=== PATIENT | female | born 1955 | race American Indian/Alaskan Native ===

== ENCOUNTER 2017-08-08 19:14 | Inpatient (IN) | payer MEDICARE, OTHER ==
[~2017-08-08] VITALS: Ht 162.6 cm; Wt 50.5 kg
[~2017-08-08 19:14] MED LIST: CEFD300C37 PO; DOXY100T PO; IPRA3AMP NPPB; LOSA50TA2 PO; PRED5TAB PO
[2017-08-08] MEDS ORDERED: ONDANSETRON 2MG/ML, 2ML IVPush ONE (20:00)
[2017-08-08] MEDS ORDERED: ALBUTEROL/IPRATROPIUM 2.5MG/0.5MG, 3 ML ONE ×2 (20:10→21:12)
[2017-08-08] MEDS ORDERED: CEFTRIAXONE PMX 1GM/50ML 50 ML ONE (20:48)
[2017-08-08] MEDS ORDERED: SODIUM CHLORIDE FLUSH 10ML SYR IVF ONE (21:00)
[2017-08-08] MEDS ORDERED: CEFTRIAXONE PMX 1GM/50ML 50 ML IVPB ONE (21:00)
[2017-08-08] MEDS ORDERED: AZITHROMYCIN 500 MG in SODIUM CHLORIDE 0.9% 250 ML IV ONE (21:00)
[2017-08-08] MEDS ORDERED: SODIUM CHLORIDE 0.9% 1,000ML IVBOLUS ONE (21:00)
[2017-08-08 21:14] LABS: HEMATOCRIT 43.2 % (34.6-47.8); HEMOGLOBIN 14.2 g/dL (11.7-16.4); WHITE BLOOD COUNT 14.5 x10^3/uL (3.4-10)
[2017-08-08 21:20] LABS: BLOOD UREA NITROGEN 19 mg/dL (7-18)
[2017-08-08] MEDS ORDERED: ENALAPRILAT 1.25 MG/ML, 2ML IV ONE (23:00)
[2017-08-08] MEDS ORDERED: ENALAPRILAT 1.25 MG/ML, 2ML ONE (23:14)
[2017-08-08] MEDS ORDERED: POLYETHYLENE GLYCOL 17 GM PACKET PO PRN (23:30)
[2017-08-08] MEDS: AZITHROMYCIN 500 MG in SODIUM CHLORIDE 0.9% 250 ML IV SCH (23:30)
[2017-08-08] MEDS: CEFTRIAXONE PMX 1GM/50ML 50 ML IV SCH (23:30)
[2017-08-08] MEDS ORDERED: BISACODYL 10 MG SUPP PR PRN (23:30)
[2017-08-08] MEDS ORDERED: hydrALAzine 20 MG/ML, 1ML IVPush PRN (23:30)
[2017-08-08] MEDS ORDERED: ONDANSETRON 2MG/ML, 2ML IVPush PRN (23:30)
[2017-08-09] MEDS ORDERED: LISINOPRIL 20 MG TABLET ONE (00:47)
[2017-08-09] MEDS ORDERED: HEPARIN 5,000 UNITS/ML, 1ML ONE (00:47)
[2017-08-09] MEDS ORDERED: NICOTINE 21 MG/24 HR PATCH.TD24 ONE (00:47)
[2017-08-09] MEDS: HEPARIN 5,000 UNITS/ML, 1ML SQ SCH ×3 (00:54→16:32)
[2017-08-09] MEDS: NICOTINE 21 MG/24 HR PATCH.TD24 TD SCH (00:54)
[2017-08-09] MEDS: LISINOPRIL 20 MG TABLET PO SCH ×3 (00:54→22:50)
[2017-08-09] MEDS: SODIUM CHLORIDE 0.9% 1,000 ML IV SCH ×3 (00:55→16:31)
[2017-08-09] MEDS ORDERED: ALBUTEROL/IPRATROPIUM 2.5MG/0.5MG, 3 ML NPPB PRN (01:30)
[2017-08-09] MEDS ORDERED: ALBUTEROL/IPRATROPIUM 2.5MG/0.5MG, 3 ML ONE (01:49)
[2017-08-09] MEDS: ALBUTEROL/IPRATROPIUM 2.5MG/0.5MG, 3 ML NPPB SCH ×7 (01:53→21:59)
[2017-08-09 05:22] LABS: HEMATOCRIT 38.1 % (34.6-47.8); HEMOGLOBIN 12.9 g/dL (11.7-16.4); WHITE BLOOD COUNT 23.4 x10^3/uL (3.4-10)
[2017-08-09 05:25] LABS: BLOOD UREA NITROGEN 12 mg/dL (7-18)
[2017-08-09 05:30] LABS: ASPARTATE AMINO TRANSFERASE 22 U/L (15-37)
[2017-08-09 06:03] LABS: DIFF TOTAL CELLS COUNTED 100 CELL DIFF
[2017-08-09 06:07] LABS: VERIFY COUNTS? YES
[2017-08-09 07:54] VITALS: BP 156/87
[2017-08-09] MEDS: ACETAMINOPHEN 325 MG TABLET PO PRN ×2 (10:24→22:51)
[2017-08-09] MEDS: SENNA/DOCUSATE TABLET PO SCH (10:25)
[2017-08-09 15:47] VITALS: BP 118/60
[2017-08-09 20:00] VITALS: BP 119/72
[2017-08-09] MEDS: GUAIFENESIN/DM 200-20MG, 10ML UDC PO PRN (23:20)
[2017-08-09] MEDS: CEFTRIAXONE PMX 1GM/50ML 50 ML IV SCH (23:21)
[2017-08-09] MEDS ORDERED: DEXTROMETHORPHAN 30 MG/5 ML ORAL SOL PO PRN (23:30)
[2017-08-10] MEDS: NICOTINE 21 MG/24 HR PATCH.TD24 TD SCH ×2 (00:04→23:33)
[2017-08-10] MEDS: HEPARIN 5,000 UNITS/ML, 1ML SQ SCH ×4 (00:04→23:30)
[2017-08-10] MEDS: AZITHROMYCIN 500 MG in SODIUM CHLORIDE 0.9% 250 ML IV SCH ×2 (00:06→23:32)
[2017-08-10] MEDS: ALBUTEROL/IPRATROPIUM 2.5MG/0.5MG, 3 ML NPPB SCH ×5 (01:46→21:20)
[2017-08-10 02:43] VITALS: BP 128/72
[2017-08-10] MEDS: SODIUM CHLORIDE 0.9% 1,000 ML IV SCH ×3 (04:35→19:50)
[2017-08-10 06:24] LABS: HEMATOCRIT 36.2 % (34.6-47.8); HEMOGLOBIN 11.8 g/dL (11.7-16.4)
[2017-08-10 06:28] LABS: BLOOD UREA NITROGEN 10 mg/dL (7-18)
[2017-08-10 08:12] VITALS: BP 144/86
[2017-08-10] MEDS: GUAIFENESIN/DM 200-20MG, 10ML UDC PO PRN ×2 (08:59→20:03)
[2017-08-10] MEDS: LISINOPRIL 20 MG TABLET PO SCH ×2 (08:59→20:53)
[2017-08-10] MEDS: SENNA/DOCUSATE TABLET PO SCH (08:59)
[2017-08-10] MEDS ORDERED: POTASSIUM CHLORIDE 20 MEQ TAB.ER.PRT PO ONE (15:00)
[2017-08-10 15:28] VITALS: BP 166/86
[2017-08-10 19:19] VITALS: BP 151/75
[2017-08-10] MEDS: CEFTRIAXONE PMX 1GM/50ML 50 ML IV SCH (22:54)
[2017-08-11 03:00] VITALS: BP 127/72
[2017-08-11 05:22] LABS: HEMATOCRIT 33.4 % (34.6-47.8); HEMOGLOBIN 11.1 g/dL (11.7-16.4); WHITE BLOOD COUNT 10.5 x10^3/uL (3.4-10)
[2017-08-11 05:34] LABS: BLOOD UREA NITROGEN 7 mg/dL (7-18)
[2017-08-11] MEDS: SODIUM CHLORIDE 0.9% 1,000 ML IV SCH (05:49)
[2017-08-11] MEDS: GUAIFENESIN/DM 200-20MG, 10ML UDC PO PRN ×2 (05:49→12:13)
[2017-08-11] MEDS: ALBUTEROL/IPRATROPIUM 2.5MG/0.5MG, 3 ML NPPB SCH (07:03)
[2017-08-11] MEDS: HEPARIN 5,000 UNITS/ML, 1ML SQ SCH (07:30)
[2017-08-11] MEDS ORDERED: GUAI5SYR PO (08:14)
[2017-08-11] MEDS ORDERED: LISI-170 PO (08:14)
[2017-08-11] MEDS ORDERED: CEFD300C37 PO (08:14)
[2017-08-11] MEDS ORDERED: IPRA3AMP NPPB (08:14)
[2017-08-11] MEDS ORDERED: NICO-487 TD (08:14)
[2017-08-11 08:30] VITALS: BP 168/92
[2017-08-11] MEDS: LISINOPRIL 20 MG TABLET PO SCH (08:41)
[2017-08-11] MEDS: SENNA/DOCUSATE TABLET PO SCH (08:42)
[2017-08-11] MEDS ORDERED: CEFDINIR 300 MG CAPSULE PO SCH (09:00)
== END 2017-08-11 12:45 | disposition home or self-care (01) | DRG 871 ==
LOC: ED 22:03 → EDIP 23:08 → 4EST 08-09 07:49 → DCLOUNGE 08-11 12:31
PROVIDERS: ADMIT Surgery; ATTEND Internal Medicine
DX: A41.9 Sepsis, unspecified organism (principal); J15.9 Unspecified bacterial pneumonia; J96.01 Acute respiratory failure with hypoxia; E43 Unspecified severe protein-calorie malnutrition; J44.0 Chronic obstructive pulmonary disease with (acute) lower respiratory infection; Z68.1 Body mass index [BMI] 19.9 or less, adult; I10 Essential (primary) hypertension; F12.90 Cannabis use, unspecified, uncomplicated; E87.6 Hypokalemia; F15.10 Other stimulant abuse, uncomplicated; F41.9 Anxiety disorder, unspecified; R79.89 Other specified abnormal findings of blood chemistry; F17.200 Nicotine dependence, unspecified, uncomplicated; Z80.8 Family history of malignant neoplasm of other organs or systems; Z87.01 Personal history of pneumonia (recurrent); Z72.0 Tobacco use; Z98.51 Tubal ligation status
CPT/HCPCS: 36415; 71010; 80048; 80053; 82040; 83605; 84145; 85025; 87040; 87070; 87205; 93005; 94640; 99285; J0456; J0696; J1644; J7620; J7030; J7050

== ENCOUNTER 2017-11-14 19:23 | Inpatient (IN) | payer MEDICARE ==
[~2017-11-14] VITALS: Ht 157.5 cm; Wt 56.8 kg
[~2017-11-14 19:23] MED LIST changes: +GUAI5SYR PO; +LISI-170 PO; +NICO-487 TD
[2017-11-14] MEDS ORDERED: ALBUTEROL/IPRATROPIUM 2.5MG/0.5MG, 3 ML ONE (19:43)
[2017-11-14 19:50] LABS: BASOPHILS # (AUTO) 0.04 x10^3/uL (0-0.1); BASOPHILS % (AUTO) 0 % (0-1); EOSINOPHILS # (AUTO) 0.49 x10^3/uL (0-0.4); EOSINOPHILS % (AUTO) 3 % (1-7); LYMPHOCYTES # (AUTO) 2.76 x10^3/uL (1-3.4); LYMPHOCYTES % (AUTO) 17 % (22-44); MD NO; MEAN CORPUSCULAR HEMOGLOBIN 31.6 pg (27.0-34.8); MEAN CORPUSCULAR HGB CONC 33.3 g/dL (32.4-35.8); MEAN CORPUSCULAR VOLUME 94.8 fL (80-100); MEAN PLATELET VOLUME 6.5 fL (7.4-10.4); MONOCYTES # (AUTO) 0.66 x10^3/uL (0.2-0.8); MONOCYTES % (AUTO) 4 % (2-9); NEUTROPHILS # (AUTO) 12.73 x10^3/uL (1.8-6.8); NEUTROPHILS % (AUTO) 76 % (42-75); PLATELET COUNT 502 x10^3/uL (130-400); RED BLOOD COUNT 4.41 x10^6/uL (3.82-5.3); RED CELL DISTRIBUTION WIDTH 15.8 % (9.6-15.2)
[2017-11-14] MEDS ORDERED: SODIUM CHLORIDE FLUSH 10ML SYR IVF ONE (20:00)
[2017-11-14] MEDS ORDERED: SODIUM CHLORIDE 0.9% 1,000ML IVBOLUS ONE (20:00)
[2017-11-14] MEDS ORDERED: CEFTRIAXONE PMX 1GM/50ML 50 ML IVPB ONE (20:00)
[2017-11-14] MEDS ORDERED: AZITHROMYCIN 500 MG in SODIUM CHLORIDE 0.9% 250 ML IV ONE (20:00)
[2017-11-14] MEDS ORDERED: ALBUTEROL/IPRATROPIUM 2.5MG/0.5MG, 3 ML NPPB SCH ×2 (20:00→23:00)
[2017-11-14 20:01] LABS: ALANINE AMINOTRANSFERASE 43 U/L (12-78); ALBUMIN 3.3 g/dL (3.4-5.0); ANION GAP 5 mmol/L (5-15); CALCIUM 8.6 mg/dL (8.5-10.1); CHLORIDE 105 mmol/L (98-107)
[2017-11-14 20:04] LABS: ALKALINE PHOSPHATASE 98 U/L (45-117); BILIRUBIN,TOTAL 0.4 mg/dL (0.2-1.0); CREATININE 0.84 mg/dL (0.55-1.02)
[2017-11-14] MEDS ORDERED: LISI40TA PO (20:31)
[2017-11-14] MEDS ORDERED: ALBU1.25 NEB (20:31)
[2017-11-14] MEDS ORDERED: CEFTRIAXONE PMX 1GM/50ML 50 ML ONE (20:33)
[2017-11-14] MEDS: AZITHROMYCIN 500 MG in SODIUM CHLORIDE 0.9% 250 ML IV SCH (20:58)
[2017-11-14] MEDS ORDERED: ENALAPRILAT 1.25 MG/ML, 2ML IVPush PRN (21:00)
[2017-11-14] MEDS ORDERED: CEFTRIAXONE PMX 1GM/50ML 50 ML IV SCH (21:00)
[2017-11-14] MEDS ORDERED: ACETAMINOPHEN 325 MG TABLET PO PRN (21:00)
[2017-11-14] MEDS ORDERED: DOCUSATE 100 MG CAPSULE PO PRN (21:00)
[2017-11-14] MEDS ORDERED: ONDANSETRON ODT 4 MG PO PRN (21:00)
[2017-11-14] MEDS ORDERED: ALBUTEROL/IPRATROPIUM 2.5MG/0.5MG, 3 ML NPPB PRN (22:30)
[2017-11-14] MEDS: ENOXAPARIN 40 MG/0.4 ML SQ SCH (22:33)
[2017-11-14] MEDS: LISINOPRIL 20 MG TABLET PO SCH (22:33)
[2017-11-14 22:42] VITALS: BP 175/109
[2017-11-14] MEDS: ALBUTEROL/IPRATROPIUM 2.5MG/0.5MG, 3 ML NPPB SCH (23:17)
[2017-11-14] MEDS: NICOTINE 14MG/24 HR PATCH.TD24 TD SCH (23:34)
[2017-11-14 23:38] VITALS: BP 151/95
[2017-11-15 01:24] VITALS: BP 144/82
[2017-11-15] MEDS: ALBUTEROL/IPRATROPIUM 2.5MG/0.5MG, 3 ML NPPB SCH ×2 (07:00→11:00)
[2017-11-15 08:19] VITALS: BP 135/76
[2017-11-15] MEDS: LISINOPRIL 20 MG TABLET PO SCH ×2 (09:11→19:53)
[2017-11-15 13:07] VITALS: BP 129/74
[2017-11-15 19:14] VITALS: BP 112/73
[2017-11-15] MEDS ORDERED: CEFTRIAXONE PMX 1GM/50ML 50 ML IV SCH (20:00)
[2017-11-15] MEDS: ENOXAPARIN 40 MG/0.4 ML SQ SCH (21:00)
[2017-11-15] MEDS: AZITHROMYCIN 500 MG in SODIUM CHLORIDE 0.9% 250 ML IV SCH (21:23)
[2017-11-15] MEDS: NICOTINE 14MG/24 HR PATCH.TD24 TD SCH (22:50)
[2017-11-16 05:18] LABS: MEAN CORPUSCULAR HEMOGLOBIN 31.7 pg (27.0-34.8); MEAN CORPUSCULAR HGB CONC 33.1 g/dL (32.4-35.8); MEAN CORPUSCULAR VOLUME 95.8 fL (80-100); MEAN PLATELET VOLUME 7.3 fL (7.4-10.4); PLATELET COUNT 478 x10^3/uL (130-400); RED BLOOD COUNT 3.81 x10^6/uL (3.82-5.3); RED CELL DISTRIBUTION WIDTH 16.2 % (9.6-15.2)
[2017-11-16 05:28] LABS: CHLORIDE 107 mmol/L (98-107)
[2017-11-16 05:29] LABS: ANION GAP 5 mmol/L (5-15); CALCIUM 8.2 mg/dL (8.5-10.1)
[2017-11-16 05:32] LABS: CREATININE 0.75 mg/dL (0.55-1.02)
[2017-11-16 05:42] VITALS: BP 133/89
[2017-11-16 06:02] LABS: BASOPHILS # (AUTO) 0.07 x10^3/uL (0-0.1); BASOPHILS % (AUTO) 0 % (0-1); EOSINOPHILS # (AUTO) 0.12 x10^3/uL (0-0.4); EOSINOPHILS % (AUTO) 1 % (1-7); LYMPHOCYTES # (AUTO) 3.05 x10^3/uL (1-3.4); LYMPHOCYTES % (AUTO) 16 % (22-44); MD SCAN; MONOCYTES # (AUTO) 0.96 x10^3/uL (0.2-0.8); MONOCYTES % (AUTO) 5 % (2-9); NEUTROPHILS # (AUTO) 14.88 x10^3/uL (1.8-6.8); NEUTROPHILS % (AUTO) 78 % (42-75)
[2017-11-16 07:59] VITALS: BP 142/83
[2017-11-16] MEDS: LISINOPRIL 20 MG TABLET PO SCH (09:28)
[2017-11-16] MEDS ORDERED: CEFD300C37 PO (11:06)
[2017-11-16] MEDS ORDERED: AZIT250T PO (11:06)
[2017-11-16] MEDS ORDERED: PRED20TA PO (11:06)
[2017-11-16 13:53] VITALS: BP 161/83
[2017-11-16 17:26] LABS: HCT (SEDRATE) 41.5 % (34.6-47.8)
== END 2017-11-16 18:15 | disposition home or self-care (01) | DRG 871 ==
LOC: MERGE 21:09 → ED 21:09 → EDIP 21:29 → 3NW 21:59
PROVIDERS: ADMIT Hospitalist; ATTEND Hospitalist
DX: A41.9 Sepsis, unspecified organism (principal); J15.9 Unspecified bacterial pneumonia; J96.01 Acute respiratory failure with hypoxia; J44.1 Chronic obstructive pulmonary disease with (acute) exacerbation; J44.0 Chronic obstructive pulmonary disease with (acute) lower respiratory infection; F17.213 Nicotine dependence, cigarettes, with withdrawal; I11.9 Hypertensive heart disease without heart failure; I16.0 Hypertensive urgency; F12.90 Cannabis use, unspecified, uncomplicated; M19.90 Unspecified osteoarthritis, unspecified site; Z80.0 Family history of malignant neoplasm of digestive organs; D47.3 Essential (hemorrhagic) thrombocythemia
CPT/HCPCS: 36415; 71046; 80048; 80053; 83605; 84145; 85025; 85651; 86140; 87040; 93005; 94640; 96365; J0456; J0696; J7620; J7030; J7050; J7512

== ENCOUNTER 2018-06-02 08:50 | Inpatient (IN) | payer MEDICARE ==
[~2018-06-02] VITALS: Ht 162.6 cm; Wt 53.2 kg
[~2018-06-02 08:50] MED LIST changes: +ALBU1.25 NEB; +AZIT250T PO; -IPRA3AMP NPPB; +IPRA3AMP30 NPPB; +LISI40TA PO; +PRED20TA PO
[2018-06-02] MEDS ORDERED: ALBU18HF INH (09:05)
[2018-06-02] MEDS ORDERED: LISINOPRIL 20 MG TABLET ONE (09:35)
[2018-06-02 09:51] LABS: BASOPHILS # (AUTO) 0.03 x10^3/uL (0-0.1); BASOPHILS % (AUTO) 0 % (0-1); EOSINOPHILS % (AUTO) 1 % (1-7); LYMPHOCYTES # (AUTO) 0.95 x10^3/uL (1-3.4); LYMPHOCYTES % (AUTO) 11 % (22-44); MD NO; MEAN CORPUSCULAR HEMOGLOBIN 31.9 pg (27.0-34.8); MEAN CORPUSCULAR HGB CONC 33.5 g/dL (32.4-35.8); MEAN CORPUSCULAR VOLUME 95.1 fL (80-100); MONOCYTES # (AUTO) 0.59 x10^3/uL (0.2-0.8); MONOCYTES % (AUTO) 7 % (2-9); NEUTROPHILS # (AUTO) 6.76 x10^3/uL (1.8-6.8); NEUTROPHILS % (AUTO) 80 % (42-75); PLATELET COUNT 371 x10^3/uL (130-400); RED BLOOD COUNT 5.08 x10^6/uL (3.82-5.3); RED CELL DISTRIBUTION WIDTH 14.6 % (9.6-15.2)
[2018-06-02] MEDS ORDERED: LISINOPRIL 20 MG TABLET PO ONE (10:00)
[2018-06-02 10:04] LABS: ALBUMIN 3.7 g/dL (3.4-5.0); ANION GAP 5 mmol/L (5-15); CALCIUM 9.4 mg/dL (8.5-10.1); CHLORIDE 101 mmol/L (98-107); CREATININE 0.84 mg/dL (0.55-1.02)
[2018-06-02] MEDS ORDERED: hydrALAzine 20 MG/ML, 1ML IV ONE ×2 (11:00→13:00)
[2018-06-02] MEDS ORDERED: ALBUTEROL SULFATE 2.5 MG/3 ML NPPB ONE (11:00)
[2018-06-02] MEDS ORDERED: ALBUTEROL SULFATE 2.5 MG/3 ML ONE (11:09)
[2018-06-02] MEDS ORDERED: OMNIPAQUE 350 MG/ML, 100ML BOTTLE ONE (11:29)
[2018-06-02] MEDS ORDERED: hydrALAzine 20 MG/ML, 1ML ONE (11:31)
[2018-06-02 12:53] VITALS: BP 186/119
[2018-06-02] MEDS ORDERED: SODIUM CHLORIDE 0.9% 1,000 ML IV SCH ×2 (12:53→23:00)
[2018-06-02] MEDS ORDERED: morphine SULFATE 10 MG/ML, 1ML IVPush PRN (13:00)
[2018-06-02] MEDS ORDERED: ONDANSETRON ODT 4 MG PO PRN (13:00)
[2018-06-02] MEDS ORDERED: ACETAMINOPHEN 325 MG TABLET PO PRN (13:00)
[2018-06-02] MEDS ORDERED: BISACODYL 10 MG SUPP PR PRN (13:00)
[2018-06-02] MEDS ORDERED: ONDANSETRON 2MG/ML, 2ML IVPush PRN (13:00)
[2018-06-02] MEDS ORDERED: PROMETHAZINE 25 MG/ML, 1ML IM PRN (13:00)
[2018-06-02 13:03] VITALS: BP 166/103
[2018-06-02] MEDS: NICOTINE 14MG/24 HR PATCH.TD24 TD SCH (13:19)
[2018-06-02] MEDS: ALBUTEROL/IPRATROPIUM 2.5MG/0.5MG, 3 ML NPPB SCH ×3 (13:20→22:00)
[2018-06-02] MEDS: ENALAPRILAT 1.25 MG/ML, 2ML IVPush PRN (13:21)
[2018-06-02] MEDS: methylPREDNISolone SOD SUCC 125 MG/2 ML IVPush SCH ×2 (13:25→20:23)
[2018-06-02] MEDS: HEPARIN 5,000 UNITS/ML, 1ML SQ SCH ×2 (13:27→20:24)
[2018-06-02] MEDS ORDERED: LABETALOL 5MG/ML, 20ML IVPush STA (13:47)
[2018-06-02 13:52] VITALS: BP 166/91
[2018-06-02 14:08] VITALS: BP 121/80
[2018-06-02 14:18] LABS: TROPONIN I < 0.015 ng/mL (0.000-0.045)
[2018-06-02 14:33] LABS: HEMOGLOBIN A1C 5.9 % (4.2-6.3)
[2018-06-02 14:41] LABS: FREE T4 (FREE THYROXINE) 1.34 ng/dL (0.76-1.46); THYROID STIMULATING HORMONE 0.881 mIU/L (0.358-3.740)
[2018-06-02] MEDS: DOXYCYCLINE 100MG TABLET PO SCH (16:31)
[2018-06-02 19:29] VITALS: BP 137/82
[2018-06-02] MEDS ORDERED: LISI40TA PO (20:15)
[2018-06-02] MEDS: OXYcodone/APAP 10/325MG TABLET PO PRN (20:45)
[2018-06-02] MEDS: DOCUSATE 100 MG CAPSULE PO PRN (20:45)
[2018-06-02 23:28] LABS: MICROSCOPIC NOT IND
[2018-06-02 23:32] LABS: CULTURE INDICATED? NO
[2018-06-03 01:28] VITALS: BP 122/73
[2018-06-03] MEDS: methylPREDNISolone SOD SUCC 125 MG/2 ML IVPush SCH ×4 (01:31→19:45)
[2018-06-03 04:33] LABS: MEAN CORPUSCULAR HEMOGLOBIN 32.2 pg (27.0-34.8); MEAN CORPUSCULAR HGB CONC 33.5 g/dL (32.4-35.8); MEAN CORPUSCULAR VOLUME 96.1 fL (80-100); MEAN PLATELET VOLUME 7.4 fL (7.4-10.4); PLATELET COUNT 371 x10^3/uL (130-400); RED BLOOD COUNT 4.27 x10^6/uL (3.82-5.3); RED CELL DISTRIBUTION WIDTH 14.5 % (9.6-15.2)
[2018-06-03 04:34] LABS: ALBUMIN 2.8 g/dL (3.4-5.0); ANION GAP 9 mmol/L (5-15); CALCIUM 8.6 mg/dL (8.5-10.1); CHLORIDE 104 mmol/L (98-107)
[2018-06-03] MEDS: HEPARIN 5,000 UNITS/ML, 1ML SQ SCH ×3 (04:35→19:53)
[2018-06-03] MEDS: DOXYCYCLINE 100MG TABLET PO SCH ×3 (04:35→19:44)
[2018-06-03 04:39] LABS: ALANINE AMINOTRANSFERASE 32 U/L (12-78); ALKALINE PHOSPHATASE 75 U/L (45-117); BILIRUBIN,TOTAL 0.3 mg/dL (0.2-1.0); CHOL/HDL RATIO 2.6; CHOLESTEROL, TOTAL 156 mg/dL (140-239); HDL CHOL % 38 % (28-40); HDL CHOLESTEROL (DIRECT) 60 mg/dL (40-60); LDL CHOLESTEROL,CALCULATED 88 mg/dL (54-169); LDL/HDL RATIO 1.5 (0.5-3.0); TRIGLYCERIDES 42 mg/dL (50-200); VLDL CHOLESTEROL 8 mg/dL (0-25)
[2018-06-03 05:07] LABS: MD YES
[2018-06-03 05:08] LABS: BAND#(MANUAL) 0.75 x10^3/uL; BANDS%(MANUAL) 4 % (0-7); LYMPH#(MANUAL) 0.19 x10^3/uL (1-3.4); LYMPHS% (MANUAL) 1 % (22-44); MONOS#(MANUAL) 0.56 x10^3/uL (0.3-2.7); MONOS% (MANUAL) 3 % (2-9); SEGS% (MANUAL) 92 % (42-75)
[2018-06-03 05:09] LABS: <PLATELET ESTIMATE> ADEQUATE; <PLT MORPHOLOGY> NORMAL PLT MORPH; <RBC MORPHOLOGY> NORMAL
[2018-06-03 07:06] VITALS: BP 127/77
[2018-06-03] MEDS: ALBUTEROL/IPRATROPIUM 2.5MG/0.5MG, 3 ML NPPB SCH ×5 (07:40→22:00)
[2018-06-03] MEDS: OXYcodone/APAP 10/325MG TABLET PO PRN ×2 (10:13→19:44)
[2018-06-03 13:15] VITALS: BP 139/88
[2018-06-03] MEDS: NICOTINE 14MG/24 HR PATCH.TD24 TD SCH (13:33)
[2018-06-03] MEDS: LOSARTAN 50MG TABLET PO SCH (13:33)
[2018-06-03 18:39] VITALS: BP 120/74
[2018-06-03] MEDS: DOCUSATE 100 MG CAPSULE PO PRN (19:53)
[2018-06-04] MEDS: methylPREDNISolone SOD SUCC 125 MG/2 ML IVPush SCH ×4 (01:16→20:13)
[2018-06-04 01:21] VITALS: BP 123/74
[2018-06-04] MEDS: OXYcodone/APAP 10/325MG TABLET PO PRN ×5 (01:24→23:30)
[2018-06-04] MEDS: HEPARIN 5,000 UNITS/ML, 1ML SQ SCH ×3 (05:16→20:13)
[2018-06-04] MEDS: ALBUTEROL/IPRATROPIUM 2.5MG/0.5MG, 3 ML NPPB SCH ×4 (06:00→19:55)
[2018-06-04 08:17] VITALS: BP 147/91
[2018-06-04] MEDS: DOXYCYCLINE 100MG TABLET PO SCH ×2 (08:22→20:13)
[2018-06-04] MEDS: LOSARTAN 50MG TABLET PO SCH (08:22)
[2018-06-04] MEDS ORDERED: PRED5TAB PO (12:35)
[2018-06-04] MEDS ORDERED: DOXY100T PO (12:35)
[2018-06-04] MEDS ORDERED: ALBU18HF INH (12:35)
[2018-06-04] MEDS ORDERED: LOSA50TA2 PO (12:35)
[2018-06-04] MEDS ORDERED: IPRA4AER INH (12:35)
[2018-06-04 13:08] VITALS: BP 165/95
[2018-06-04] MEDS: NICOTINE 14MG/24 HR PATCH.TD24 TD SCH (13:33)
[2018-06-04 19:38] VITALS: BP 157/86
[2018-06-05 01:49] VITALS: BP 149/82
[2018-06-05] MEDS: methylPREDNISolone SOD SUCC 125 MG/2 ML IVPush SCH ×4 (02:46→19:58)
[2018-06-05] MEDS: HEPARIN 5,000 UNITS/ML, 1ML SQ SCH ×2 (05:00→13:36)
[2018-06-05 06:59] VITALS: BP 166/95
[2018-06-05] MEDS: ALBUTEROL/IPRATROPIUM 2.5MG/0.5MG, 3 ML NPPB SCH ×4 (07:45→19:16)
[2018-06-05] MEDS: DOXYCYCLINE 100MG TABLET PO SCH ×2 (07:59→19:58)
[2018-06-05] MEDS: LOSARTAN 50MG TABLET PO SCH (07:59)
[2018-06-05] MEDS: OXYcodone/APAP 10/325MG TABLET PO PRN ×3 (08:15→18:34)
[2018-06-05 12:38] VITALS: BP 162/92
[2018-06-05] MEDS: NICOTINE 14MG/24 HR PATCH.TD24 TD SCH (13:36)
[2018-06-05 19:38] VITALS: BP 153/97
[2018-06-06 01:15] VITALS: BP 152/77
[2018-06-06] MEDS: HEPARIN 5,000 UNITS/ML, 1ML SQ SCH ×3 (01:44→16:39)
[2018-06-06] MEDS: OXYcodone/APAP 10/325MG TABLET PO PRN ×4 (01:45→19:24)
[2018-06-06] MEDS: methylPREDNISolone SOD SUCC 125 MG/2 ML IVPush SCH ×4 (01:45→20:06)
[2018-06-06] MEDS: ALBUTEROL/IPRATROPIUM 2.5MG/0.5MG, 3 ML NPPB SCH (06:32)
[2018-06-06 07:45] VITALS: BP 154/81
[2018-06-06] MEDS ORDERED: ALBUTEROL/IPRATROPIUM 2.5MG/0.5MG, 3 ML NPPB PRN (08:30)
[2018-06-06] MEDS: DOXYCYCLINE 100MG TABLET PO SCH ×2 (09:00→20:06)
[2018-06-06] MEDS: LOSARTAN 50MG TABLET PO SCH (09:38)
[2018-06-06] MEDS: DOCUSATE 100 MG CAPSULE PO PRN (10:00)
[2018-06-06] MEDS: POLYETHYLENE GLYCOL 17 GM PACKET PO PRN (10:00)
[2018-06-06 12:50] VITALS: BP 173/96
[2018-06-06] MEDS: NICOTINE 14MG/24 HR PATCH.TD24 TD SCH (12:57)
[2018-06-06 20:23] VITALS: BP 170/90
[2018-06-07 01:02] VITALS: BP 188/100
[2018-06-07] MEDS: hydrALAzine 20 MG/ML, 1ML IVPush PRN (01:06)
[2018-06-07] MEDS: OXYcodone/APAP 10/325MG TABLET PO PRN ×5 (01:08→21:43)
[2018-06-07] MEDS: HEPARIN 5,000 UNITS/ML, 1ML SQ SCH ×3 (02:00→16:58)
[2018-06-07] MEDS: methylPREDNISolone SOD SUCC 125 MG/2 ML IVPush SCH ×2 (02:08→08:12)
[2018-06-07 02:11] VITALS: BP 172/88
[2018-06-07 07:00] VITALS: BP 109/103
[2018-06-07] MEDS: DOXYCYCLINE 100MG TABLET PO SCH ×2 (08:11→21:00)
[2018-06-07] MEDS: LOSARTAN 50MG TABLET PO SCH (08:11)
[2018-06-07] MEDS: ALBUTEROL/IPRATROPIUM 2.5MG/0.5MG, 3 ML NPPB PRN (11:06)
[2018-06-07 12:48] VITALS: BP 175/95
[2018-06-07] MEDS: NICOTINE 14MG/24 HR PATCH.TD24 TD SCH (17:01)
[2018-06-07 19:19] VITALS: BP 162/86
[2018-06-07] MEDS: DOCUSATE 100 MG CAPSULE PO PRN (22:07)
[2018-06-07] MEDS: POLYETHYLENE GLYCOL 17 GM PACKET PO PRN (22:09)
[2018-06-08] VITALS (7 sets, daily range): BP systolic 144–194; BP diastolic 71–115
[2018-06-08] MEDS: HEPARIN 5,000 UNITS/ML, 1ML SQ SCH ×3 (02:00→18:00)
[2018-06-08] MEDS: hydrALAzine 20 MG/ML, 1ML IVPush PRN (08:25)
[2018-06-08] MEDS: LOSARTAN 50MG TABLET PO SCH (08:25)
[2018-06-08] MEDS: DOXYCYCLINE 100MG TABLET PO SCH ×2 (08:25→20:48)
[2018-06-08] MEDS: FLUTICASONE/VILANTEROL 200-25MCG/INH INH SCH (10:43)
[2018-06-08] MEDS: CARVEDILOL 6.25 MG TABLET PO SCH ×2 (10:43→18:27)
[2018-06-08] MEDS: ENALAPRILAT 1.25 MG/ML, 2ML IVPush PRN (10:47)
[2018-06-08] MEDS: OXYcodone/APAP 10/325MG TABLET PO PRN ×2 (10:47→22:45)
[2018-06-08] MEDS ORDERED: CARV6.2512 PO (11:15)
[2018-06-08] MEDS: NICOTINE 14MG/24 HR PATCH.TD24 TD SCH (13:17)
[2018-06-08] MEDS: ALBUTEROL/IPRATROPIUM 2.5MG/0.5MG, 3 ML NPPB SCH (20:01)
[2018-06-08] MEDS: POLYETHYLENE GLYCOL 17 GM PACKET PO PRN (22:45)
[2018-06-09] MEDS: ALBUTEROL/IPRATROPIUM 2.5MG/0.5MG, 3 ML NPPB PRN (00:59)
[2018-06-09 01:13] VITALS: BP 173/99
[2018-06-09] MEDS: HEPARIN 5,000 UNITS/ML, 1ML SQ SCH ×2 (01:17→10:00)
[2018-06-09] MEDS: hydrALAzine 20 MG/ML, 1ML IVPush PRN (01:37)
[2018-06-09 02:47] VITALS: BP 146/77
[2018-06-09] MEDS: OXYcodone/APAP 10/325MG TABLET PO PRN (03:27)
[2018-06-09] MEDS: CARVEDILOL 6.25 MG TABLET PO SCH (05:18)
[2018-06-09] MEDS: ALBUTEROL/IPRATROPIUM 2.5MG/0.5MG, 3 ML NPPB SCH ×3 (06:00→14:33)
[2018-06-09 06:53] VITALS: BP 155/86
[2018-06-09] MEDS: LOSARTAN 50MG TABLET PO SCH (08:20)
[2018-06-09] MEDS: DOXYCYCLINE 100MG TABLET PO SCH (08:20)
[2018-06-09] MEDS: FLUTICASONE/VILANTEROL 200-25MCG/INH INH SCH (08:21)
[2018-06-09 12:15] VITALS: BP 151/89
== END 2018-06-09 15:00 | disposition home or self-care (01) | DRG 189 ==
LOC: ED 10:09 → EDIP 12:01 → 3NW 12:12 → 3NE 06-05 08:22
PROVIDERS: ADMIT Hospitalist; ATTEND Hospitalist
DX: J96.01 Acute respiratory failure with hypoxia (principal); J44.1 Chronic obstructive pulmonary disease with (acute) exacerbation; E87.1 Hypo-osmolality and hyponatremia; I11.9 Hypertensive heart disease without heart failure; F17.200 Nicotine dependence, unspecified, uncomplicated; Z79.899 Other long term (current) drug therapy; Z59.0 Homelessness; Z90.49 Acquired absence of other specified parts of digestive tract; Z91.14 Patient's other noncompliance with medication regimen; Z98.51 Tubal ligation status; Z79.51 Long term (current) use of inhaled steroids; Z88.5 Allergy status to narcotic agent; Z71.6 Tobacco abuse counseling; Z23 Encounter for immunization
CPT/HCPCS: 0399T; 36415; 36600; 71046; 71275; 80048; 80053; 80061; 81003; 82040; 82803; 83036; 83735; 84439; 84443; 84484; 85025; 87070; 87205; 90656; 93005; 93306; 94640; 96374; 99285; G0378; J1644; J7613; J7620; Q9967; J0360; J2930; J7030; J7512

== ENCOUNTER 2018-11-02 18:15 | Inpatient (IN) | payer MEDICARE ==
[~2018-11-02] VITALS: Ht 162.6 cm; Wt 46.8 kg
[~2018-11-02 18:15] MED LIST changes: +ALBU18HF INH; +CARV6.2512 PO; +IPRA4AER INH
[2018-11-02] MEDS: ALBUTEROL/IPRATROPIUM 2.5MG/0.5MG, 3 ML NPPB SCH ×2 (18:35→18:53)
--- NOTE | 2018-11-02 19:07 | NUR ---
FRANCOISE (rn) IS ASSUMING CARE OF THIS PT AT THIS TIME. SBAR REPORT WAS EXCHANGED AT THE BEDSIDE.
[2018-11-02 19:08] LABS: MEAN CORPUSCULAR HEMOGLOBIN 30.9 pg (27.0-34.8); MEAN CORPUSCULAR HGB CONC 33.5 g/dL (32.4-35.8); MEAN CORPUSCULAR VOLUME 92.4 fL (80-100); MEAN PLATELET VOLUME 7.2 fL (7.4-10.4); PLATELET COUNT 426 x10^3/uL (130-400); RED BLOOD COUNT 4.77 x10^6/uL (3.82-5.3); RED CELL DISTRIBUTION WIDTH 15.8 % (9.6-15.2)
[2018-11-02 19:17] LABS: ALBUMIN 3.3 g/dL (3.4-5.0); ANION GAP 4 mmol/L (5-15); CALCIUM 8.7 mg/dL (8.5-10.1); CHLORIDE 103 mmol/L (98-107); CREATININE 0.94 mg/dL (0.55-1.02)
[2018-11-02 19:20] LABS: TROPONIN I < 0.015 ng/mL (0.000-0.045)
--- NOTE | 2018-11-02 19:21 | NUR ---
assumed care at this time. pt on spo2 monitors. pts spo2 above 90%. pt resting. awaiting further orders.
[2018-11-02 19:25] LABS: MD YES
[2018-11-02 19:27] LABS: BAND#(MANUAL) 1.51 x10^3/uL; BANDS%(MANUAL) 7 % (0-7); BASOS#(MANUAL) 0.22 x10^3/uL (0-0.1); BASOS% (MANUAL) 1 % (0-1); LYMPH#(MANUAL) 0.86 x10^3/uL (1-3.4); LYMPHS% (MANUAL) 4 % (22-44); MONOS#(MANUAL) 0.86 x10^3/uL (0.3-2.7); MONOS% (MANUAL) 4 % (2-9); SEG#(MANUAL) 18.06 x10^3/uL (1.8-6.8); SEGS% (MANUAL) 84 % (42-75)
[2018-11-02 19:28] LABS: <PLATELET ESTIMATE> INCREASED; <PLT MORPHOLOGY> NORMAL PLT MORPH; ANISOCYTOSIS 1+
[2018-11-02] MEDS ORDERED: MORPHINE SULFATE 4 MG/ML, 1ML IVPush ONE (19:30)
[2018-11-02] MEDS ORDERED: CEFTRIAXONE PMX 1GM/50ML 50 ML ONE (19:38)
[2018-11-02] MEDS ORDERED: MORPHINE SULFATE 4 MG/ML, 1ML ONE (19:39)
[2018-11-02] MEDS ORDERED: SODIUM CHLORIDE 0.9% 1,000ML IVBOLUS ONE (20:00)
[2018-11-02] MEDS ORDERED: CEFTRIAXONE PMX 1GM/50ML 50 ML IVPB ONE (20:00)
[2018-11-02] MEDS ORDERED: SODIUM CHLORIDE FLUSH 10ML SYR IVF ONE (20:00)
[2018-11-02] MEDS ORDERED: DOXYCYCLINE 100 MG in DEXTROSE 5% 250 ML IV ONE (20:00)
--- NOTE | 2018-11-02 20:27 | NUR ---
PT WEANED DOWN TO NASAL CANNULA AT THIS TIME. VSS
--- NOTE | 2018-11-02 21:01 | NUR ---
REPORT CALLED TO HILIARY RN.
[2018-11-02 22:00] VITALS: BP 164/88
[2018-11-02] MEDS ORDERED: ACETAMINOPHEN 325 MG TABLET PO PRN (22:00)
[2018-11-02] MEDS ORDERED: LABETALOL 5MG/ML, 20ML IVPush PRN (22:00)
[2018-11-02] MEDS ORDERED: CEFTRIAXONE PMX 1GM/50ML 50 ML IV ONE (22:00)
[2018-11-02] MEDS ORDERED: ONDANSETRON ODT 4 MG PO PRN (22:00)
[2018-11-02] MEDS ORDERED: LIDODERM 5% PATCH TD PRN (22:00)
[2018-11-02] MEDS ORDERED: GUAIFENESIN/DM 200-20MG, 10ML UDC PO PRN (22:00)
[2018-11-02] MEDS ORDERED: BISACODYL 10 MG SUPP PR PRN (22:00)
[2018-11-02] MEDS: SODIUM CHLORIDE 0.9% 1,000 ML IV SCH (22:26)
[2018-11-02] MEDS: NICOTINE 14MG/24 HR PATCH.TD24 TD SCH (22:26)
[2018-11-02] MEDS: ENOXAPARIN 40 MG/0.4 ML SQ SCH (22:26)
[2018-11-02] MEDS ORDERED: ALBUTEROL/IPRATROPIUM 2.5MG/0.5MG, 3 ML NPPB PRN (22:30)
[2018-11-03 01:55] VITALS: BP 155/79
[2018-11-03 05:35] LABS: MEAN CORPUSCULAR HEMOGLOBIN 31.2 pg (27.0-34.8); MEAN CORPUSCULAR HGB CONC 33.7 g/dL (32.4-35.8); MEAN CORPUSCULAR VOLUME 92.5 fL (80-100); MEAN PLATELET VOLUME 7.5 fL (7.4-10.4); PLATELET COUNT 350 x10^3/uL (130-400); RED BLOOD COUNT 4.23 x10^6/uL (3.82-5.3); RED CELL DISTRIBUTION WIDTH 15.3 % (9.6-15.2)
[2018-11-03 05:41] LABS: ANION GAP 5 mmol/L (5-15); CALCIUM 8.4 mg/dL (8.5-10.1); CHLORIDE 108 mmol/L (98-107)
[2018-11-03 05:43] LABS: CREATININE 0.64 mg/dL (0.55-1.02)
[2018-11-03 05:50] LABS: MD YES
[2018-11-03 05:51] LABS: <PLATELET ESTIMATE> ADEQUATE; <PLT MORPHOLOGY> NORMAL PLT MORPH; BAND#(MANUAL) 2.92 x10^3/uL; BANDS%(MANUAL) 11 % (0-7); LYMPH#(MANUAL) 2.12 x10^3/uL (1-3.4); LYMPHS% (MANUAL) 8 % (22-44); MONOS#(MANUAL) 1.06 x10^3/uL (0.3-2.7); MONOS% (MANUAL) 4 % (2-9); SEG#(MANUAL) 20.41 x10^3/uL (1.8-6.8); SEGS% (MANUAL) 77 % (42-75)
[2018-11-03 05:52] LABS: <RBC MORPHOLOGY> NORMAL
[2018-11-03] MEDS: SODIUM CHLORIDE 0.9% 1,000 ML IV SCH (06:07)
[2018-11-03] MEDS: ALBUTEROL/IPRATROPIUM 2.5MG/0.5MG, 3 ML NPPB SCH ×4 (06:18→19:37)
[2018-11-03 07:11] VITALS: BP 161/78
[2018-11-03 13:59] VITALS: BP 133/68
[2018-11-03] MEDS: AMPICILLIN/SULBACTAM 3 GM in SODIUM CHLORIDE 0.9% 100 ML IV SCH ×2 (14:31→20:24)
[2018-11-03] MEDS: DOXYCYCLINE 100MG TABLET PO SCH ×2 (15:20→20:24)
[2018-11-03] MEDS: GUAIFENESIN 200 MG TABLET PO SCH ×2 (15:20→20:24)
--- NOTE | 2018-11-03 15:28 | NUR ---
REC: Regular diet with thin liquids with aspiration precautions; no straws; orange sheet posted in room with swallowing precautions Addendum: 11/03/18 at 1529 by Kay STOREY Amended: Links added.
[2018-11-03 16:21] LABS: INTERNATIONAL NORMALIZED RATIO 0.98 (0.93-1.1); PROTHROMBIN TIME 10.3 Seconds (9.6-11.5)
[2018-11-03 17:05] LABS: RAPID INFLUENZA A Negative (Negative); RAPID INFLUENZA B Negative (Negative)
[2018-11-03 17:10] LABS: MICROSCOPIC NOT IND
[2018-11-03 17:12] LABS: CULTURE INDICATED? NO
[2018-11-03 19:10] VITALS: BP 118/53
[2018-11-03] MEDS ORDERED: CEFTRIAXONE PMX 2GM/50ML 50 ML IV SCH (20:00)
[2018-11-03] MEDS: ENOXAPARIN 40 MG/0.4 ML SQ SCH (20:27)
[2018-11-03] MEDS: NICOTINE 14MG/24 HR PATCH.TD24 TD SCH (20:31)
[2018-11-03] MEDS: TEMAZEPAM 15 MG CAPSULE PO PRN (22:20)
[2018-11-04] MEDS: AMPICILLIN/SULBACTAM 3 GM in SODIUM CHLORIDE 0.9% 100 ML IV SCH ×4 (02:35→20:51)
[2018-11-04 02:43] VITALS: BP 162/84
[2018-11-04] MEDS: ALBUTEROL/IPRATROPIUM 2.5MG/0.5MG, 3 ML NPPB SCH ×4 (05:27→19:28)
[2018-11-04 05:47] LABS: MEAN CORPUSCULAR HEMOGLOBIN 31.3 pg (27.0-34.8); MEAN CORPUSCULAR HGB CONC 33.3 g/dL (32.4-35.8); MEAN CORPUSCULAR VOLUME 93.9 fL (80-100); MEAN PLATELET VOLUME 7.6 fL (7.4-10.4); PLATELET COUNT 366 x10^3/uL (130-400); RED BLOOD COUNT 4.03 x10^6/uL (3.82-5.3); RED CELL DISTRIBUTION WIDTH 15.9 % (9.6-15.2)
[2018-11-04 05:58] LABS: ALBUMIN 2.4 g/dL (3.4-5.0); ANION GAP 3 mmol/L (5-15); CALCIUM 8.4 mg/dL (8.5-10.1); CHLORIDE 112 mmol/L (98-107)
[2018-11-04 06:02] LABS: ALANINE AMINOTRANSFERASE 21 U/L (12-78); ALKALINE PHOSPHATASE 69 U/L (45-117); BILIRUBIN,TOTAL 0.5 mg/dL (0.2-1.0); CREATININE 0.82 mg/dL (0.55-1.02); TOTAL PROTEIN 6.5 g/dL (6.4-8.2)
[2018-11-04 06:12] LABS: BASOPHILS # (AUTO) 0.03 x10^3/uL (0-0.1); BASOPHILS % (AUTO) 0 % (0-1); EOSINOPHILS % (AUTO) 2 % (1-7); LYMPHOCYTES # (AUTO) 2.54 x10^3/uL (1-3.4); LYMPHOCYTES % (AUTO) 13 % (22-44); MD SCAN; MONOCYTES # (AUTO) 0.88 x10^3/uL (0.2-0.8); MONOCYTES % (AUTO) 5 % (2-9); NEUTROPHILS # (AUTO) 15.66 x10^3/uL (1.8-6.8); NEUTROPHILS % (AUTO) 80 % (42-75)
[2018-11-04 07:53] VITALS: BP 162/100
[2018-11-04] MEDS: DOXYCYCLINE 100MG TABLET PO SCH ×2 (08:18→20:51)
[2018-11-04] MEDS: GUAIFENESIN 200 MG TABLET PO SCH ×4 (08:18→20:51)
[2018-11-04 08:23] VITALS: BP 166/74
[2018-11-04 10:55] VITALS: BP 178/103
[2018-11-04 12:41] VITALS: BP 163/85
[2018-11-04] MEDS: LOSARTAN 50MG TABLET PO SCH (13:11)
[2018-11-04] MEDS: CARVEDILOL 6.25 MG TABLET PO SCH (17:03)
[2018-11-04 19:33] VITALS: BP 157/71
[2018-11-04] MEDS: TEMAZEPAM 15 MG CAPSULE PO PRN (20:51)
[2018-11-04] MEDS: ENOXAPARIN 40 MG/0.4 ML SQ SCH (20:54)
[2018-11-04] MEDS: NICOTINE 14MG/24 HR PATCH.TD24 TD SCH (20:55)
[2018-11-05 02:04] VITALS: BP 165/97
[2018-11-05] MEDS: AMPICILLIN/SULBACTAM 3 GM in SODIUM CHLORIDE 0.9% 100 ML IV SCH ×2 (02:38→08:54)
[2018-11-05 05:39] LABS: BASOPHILS # (AUTO) 0.02 x10^3/uL (0-0.1); BASOPHILS % (AUTO) 0 % (0-1); EOSINOPHILS # (AUTO) 0.02 x10^3/uL (0-0.4); EOSINOPHILS % (AUTO) 0 % (1-7); LYMPHOCYTES # (AUTO) 2.55 x10^3/uL (1-3.4); LYMPHOCYTES % (AUTO) 18 % (22-44); MD NO; MEAN CORPUSCULAR HEMOGLOBIN 30.4 pg (27.0-34.8); MEAN CORPUSCULAR VOLUME 94.9 fL (80-100); MEAN PLATELET VOLUME 7.5 fL (7.4-10.4); MONOCYTES # (AUTO) 0.87 x10^3/uL (0.2-0.8); MONOCYTES % (AUTO) 6 % (2-9); NEUTROPHILS # (AUTO) 10.71 x10^3/uL (1.8-6.8); NEUTROPHILS % (AUTO) 76 % (42-75); PLATELET COUNT 399 x10^3/uL (130-400); RED BLOOD COUNT 4.18 x10^6/uL (3.82-5.3); RED CELL DISTRIBUTION WIDTH 16.5 % (9.6-15.2)
[2018-11-05] MEDS: GUAIFENESIN 200 MG TABLET PO SCH (06:31)
[2018-11-05] MEDS: CARVEDILOL 6.25 MG TABLET PO SCH (06:31)
[2018-11-05 06:44] VITALS: BP 178/99
[2018-11-05] MEDS: ALBUTEROL/IPRATROPIUM 2.5MG/0.5MG, 3 ML NPPB SCH (07:00)
[2018-11-05] MEDS: LOSARTAN 50MG TABLET PO SCH (08:54)
[2018-11-05] MEDS: DOXYCYCLINE 100MG TABLET PO SCH (08:55)
[2018-11-05] MEDS ORDERED: HYDROCHLOROTHIAZIDE 12.5 MG CAPSULE PO SCH (09:00)
[2018-11-05] MEDS ORDERED: DOXY100T PO (10:59)
[2018-11-05] MEDS ORDERED: AMOX1TAB12 PO (10:59)
[2018-11-05] MEDS ORDERED: ALBU18HF INH (10:59)
[2018-11-05] MEDS ORDERED: IPRA4AER INH (10:59)
[2018-11-05] MEDS ORDERED: PRED5TAB PO (10:59)
[2018-11-05] MEDS ORDERED: HYDR12.517 PO (10:59)
== END 2018-11-05 12:11 | disposition home or self-care (01) | DRG 871 ==
LOC: ED 18:39 → 4WST 20:39 → DCLOUNGE 11-05 12:04
PROVIDERS: ADMIT Family Medicine; ATTEND Family Medicine
DX: A41.9 Sepsis, unspecified organism (principal); J15.9 Unspecified bacterial pneumonia; J96.01 Acute respiratory failure with hypoxia; J44.1 Chronic obstructive pulmonary disease with (acute) exacerbation; J44.0 Chronic obstructive pulmonary disease with (acute) lower respiratory infection; F17.210 Nicotine dependence, cigarettes, uncomplicated; F41.9 Anxiety disorder, unspecified; I10 Essential (primary) hypertension; R13.13 Dysphagia, pharyngeal phase; I16.0 Hypertensive urgency; R65.20 Severe sepsis without septic shock; Z66 Do not resuscitate; Z91.14 Patient's other noncompliance with medication regimen; Z88.6 Allergy status to analgesic agent; Z79.899 Other long term (current) drug therapy; Z82.5 Family history of asthma and other chronic lower respiratory diseases
CPT/HCPCS: 36415; 36600; 71045; 74230; 80048; 80053; 81003; 82040; 82803; 83605; 84145; 84484; 85025; 85610; 87040; 87070; 87205; 87400; 93005; 94640; 96365; 96367; G0378; J0295; J0696; J1650; J7060; J7620; J7030; J7512

== ENCOUNTER 2018-11-14 19:36 | Inpatient (IN) | payer MEDICARE, MEDICAID ==
[~2018-11-14] VITALS: Ht 162.6 cm; Wt 48.5 kg
[~2018-11-14 19:36] MED LIST changes: +AMOX1TAB12 PO; +HYDR12.517 PO
--- NOTE | 2018-11-14 19:55 | NUR ---
Pt wheeled to room with EDT.
--- NOTE | 2018-11-14 20:04 | NUR ---
Pt changed into gown and then wheeled to bathroom.
--- NOTE | 2018-11-14 20:08 | NUR ---
Bee SPANN, at bedside to evaluate pt.
--- NOTE | 2018-11-14 20:20 | NUR ---
XR at bedside.
[2018-11-14] MEDS ORDERED: ALBUTEROL/IPRATROPIUM 2.5MG/0.5MG, 3 ML ONE (20:23)
[2018-11-14] MEDS ORDERED: ALBUTEROL 0.5%, 20ML NPPB SCH (20:30)
[2018-11-14] MEDS ORDERED: SODIUM CHLORIDE FLUSH 10ML SYR IVF ONE (20:30)
[2018-11-14] MEDS ORDERED: methylPREDNISolone SOD SUCC 125 MG/2 ML IVP ONE (20:30)
[2018-11-14] MEDS ORDERED: ALBUTEROL/IPRATROPIUM 2.5MG/0.5MG, 3 ML NPPB PRN (20:30)
--- NOTE | 2018-11-14 20:39 | NUR ---
PIV started, labs drawn. Breathing tx complete.
[2018-11-14] MEDS ORDERED: methylPREDNISolone SOD SUCC 125 MG/2 ML ONE (20:40)
[2018-11-14 20:47] LABS: BASOPHILS # (AUTO) 0.01 x10^3/uL (0-0.1); BASOPHILS % (AUTO) 0 % (0-1); EOSINOPHILS # (AUTO) 0.01 x10^3/uL (0-0.4); EOSINOPHILS % (AUTO) 0 % (1-7); LYMPHOCYTES # (AUTO) 0.89 x10^3/uL (1-3.4); LYMPHOCYTES % (AUTO) 8 % (22-44); MD NO; MEAN CORPUSCULAR HGB CONC 33.2 g/dL (32.4-35.8); MEAN CORPUSCULAR VOLUME 93.5 fL (80-100); MEAN PLATELET VOLUME 7.5 fL (7.4-10.4); MONOCYTES # (AUTO) 0.72 x10^3/uL (0.2-0.8); MONOCYTES % (AUTO) 7 % (2-9); NEUTROPHILS # (AUTO) 9.14 x10^3/uL (1.8-6.8); NEUTROPHILS % (AUTO) 85 % (42-75); PLATELET COUNT 337 x10^3/uL (130-400); RED BLOOD COUNT 4.65 x10^6/uL (3.82-5.3); RED CELL DISTRIBUTION WIDTH 16.4 % (9.6-15.2)
[2018-11-14 20:55] LABS: ALANINE AMINOTRANSFERASE 29 U/L (12-78); ALBUMIN 3.4 g/dL (3.4-5.0); ANION GAP 5 mmol/L (5-15); CALCIUM 8.8 mg/dL (8.5-10.1); CHLORIDE 99 mmol/L (98-107); CREATININE 0.79 mg/dL (0.55-1.02)
[2018-11-14 20:57] LABS: ALKALINE PHOSPHATASE 88 U/L (45-117); BILIRUBIN,TOTAL 0.3 mg/dL (0.2-1.0)
--- NOTE | 2018-11-14 21:09 | NUR ---
Pt medicated per MAR.
--- NOTE | 2018-11-14 21:30 | NUR ---
Fleets enema instilled, pt resting on her left side and rail down and door open to bathroom.
--- NOTE | 2018-11-14 21:50 | NUR ---
No success yet with fleets enema.
--- NOTE | 2018-11-14 21:54 | NUR ---
Nick LEWIS, at bedside to evaluate pt for admission.
[2018-11-14] MEDS ORDERED: hydrALAzine 20 MG/ML, 1ML IV PRN (22:00)
[2018-11-14] MEDS ORDERED: ONDANSETRON ODT 4 MG PO PRN (22:00)
[2018-11-14] MEDS ORDERED: ACETAMINOPHEN 325 MG TABLET PO PRN (22:00)
[2018-11-14] MEDS ORDERED: GUAIFENESIN/DM 200-20MG, 10ML UDC PO PRN (22:00)
[2018-11-14 22:40] VITALS: BP 199/111
[2018-11-14] MEDS: SODIUM CHLORIDE FLUSH 10ML SYR IVF SCH (22:56)
[2018-11-14] MEDS: POLYETHYLENE GLYCOL 17 GM PACKET PO SCH (22:57)
[2018-11-14] MEDS: HEPARIN 5,000 UNITS/ML, 1ML SQ SCH (22:57)
[2018-11-14] MEDS: NICOTINE 14MG/24 HR PATCH.TD24 TD SCH (22:57)
[2018-11-14] MEDS: methylPREDNISolone SOD SUCC 125 MG/2 ML IVPush SCH (22:57)
[2018-11-15 00:12] VITALS: BP 180/96
[2018-11-15] MEDS ORDERED: LORazepam 2 MG/ML, 1ML IVPush PRN (02:30)
[2018-11-15] MEDS: methylPREDNISolone SOD SUCC 125 MG/2 ML IVPush SCH ×4 (05:11→22:51)
[2018-11-15] MEDS: CARVEDILOL 12.5 MG TABLET PO SCH ×2 (05:11→17:10)
[2018-11-15] MEDS: HEPARIN 5,000 UNITS/ML, 1ML SQ SCH ×3 (05:12→22:51)
[2018-11-15 05:45] VITALS: BP 148/89
[2018-11-15] MEDS ORDERED: CARVEDILOL 6.25 MG TABLET PO SCH (06:00)
[2018-11-15 07:07] VITALS: BP 156/85
[2018-11-15] MEDS: ALBUTEROL/IPRATROPIUM 2.5MG/0.5MG, 3 ML NPPB SCH ×5 (07:25→22:19)
[2018-11-15 08:38] LABS: BASOPHILS % (AUTO) 0 % (0-1); EOSINOPHILS % (AUTO) 0 % (1-7); LYMPHOCYTES # (AUTO) 0.61 x10^3/uL (1-3.4); LYMPHOCYTES % (AUTO) 7 % (22-44); MD NO; MEAN CORPUSCULAR HGB CONC 32.4 g/dL (32.4-35.8); MEAN CORPUSCULAR VOLUME 92.8 fL (80-100); MEAN PLATELET VOLUME 7.7 fL (7.4-10.4); MONOCYTES # (AUTO) 0.12 x10^3/uL (0.2-0.8); MONOCYTES % (AUTO) 1 % (2-9); NEUTROPHILS % (AUTO) 92 % (42-75); PLATELET COUNT 326 x10^3/uL (130-400); RED BLOOD COUNT 4.43 x10^6/uL (3.82-5.3)
[2018-11-15] MEDS: SODIUM CHLORIDE FLUSH 10ML SYR IVF SCH ×2 (08:45→22:51)
[2018-11-15] MEDS: POLYETHYLENE GLYCOL 17 GM PACKET PO SCH (08:46)
[2018-11-15] MEDS: SENNA/DOCUSATE TABLET PO SCH (08:46)
[2018-11-15] MEDS: HYDROCHLOROTHIAZIDE 12.5 MG CAPSULE PO SCH (08:46)
[2018-11-15] MEDS: LOSARTAN 50MG TABLET PO SCH (08:46)
[2018-11-15] MEDS: BISACODYL 10 MG SUPP PR SCH (08:47)
[2018-11-15 08:48] LABS: ALANINE AMINOTRANSFERASE 25 U/L (12-78); ALBUMIN 2.8 g/dL (3.4-5.0); ANION GAP 5 mmol/L (5-15); CALCIUM 8.8 mg/dL (8.5-10.1); CHLORIDE 101 mmol/L (98-107); CREATININE 0.59 mg/dL (0.55-1.02)
[2018-11-15 08:51] LABS: ALKALINE PHOSPHATASE 79 U/L (45-117); BILIRUBIN,TOTAL 0.3 mg/dL (0.2-1.0); TOTAL PROTEIN 6.9 g/dL (6.4-8.2)
[2018-11-15 11:51] VITALS: BP 144/102
[2018-11-15 12:29] VITALS: BP 128/77
[2018-11-15 19:03] VITALS: BP 157/88
[2018-11-15] MEDS: NICOTINE 14MG/24 HR PATCH.TD24 TD SCH (22:00)
[2018-11-15] MEDS ORDERED: MORPHINE SULFATE 4 MG/ML, 1ML IVPush ONE (22:30)
[2018-11-16] MEDS ORDERED: MORPHINE SULFATE 4 MG/ML, 1ML IVPush ONE ×3 (00:30→15:00)
[2018-11-16 01:17] VITALS: BP 150/89
[2018-11-16] MEDS: ALBUTEROL/IPRATROPIUM 2.5MG/0.5MG, 3 ML NPPB SCH ×3 (02:02→12:00)
[2018-11-16] MEDS: methylPREDNISolone SOD SUCC 125 MG/2 ML IVPush SCH ×2 (06:12→11:46)
[2018-11-16] MEDS: CARVEDILOL 12.5 MG TABLET PO SCH (06:12)
[2018-11-16 06:15] VITALS: BP 182/91
[2018-11-16] MEDS: HEPARIN 5,000 UNITS/ML, 1ML SQ SCH ×2 (07:00→15:00)
[2018-11-16] MEDS: POLYETHYLENE GLYCOL 17 GM PACKET PO SCH (09:00)
[2018-11-16] MEDS ORDERED: FUROSEMIDE 20 MG/2 ML IV ONE (09:00)
[2018-11-16] MEDS: BISACODYL 10 MG SUPP PR SCH (09:00)
[2018-11-16 09:22] LABS: BASOPHILS # (AUTO) 0.01 x10^3/uL (0-0.1); BASOPHILS % (AUTO) 0 % (0-1); EOSINOPHILS % (AUTO) 0 % (1-7); LYMPHOCYTES # (AUTO) 0.68 x10^3/uL (1-3.4); LYMPHOCYTES % (AUTO) 4 % (22-44); MD NO; MEAN CORPUSCULAR HEMOGLOBIN 30.5 pg (27.0-34.8); MEAN CORPUSCULAR HGB CONC 32.2 g/dL (32.4-35.8); MEAN CORPUSCULAR VOLUME 94.5 fL (80-100); MEAN PLATELET VOLUME 7.7 fL (7.4-10.4); MONOCYTES # (AUTO) 0.76 x10^3/uL (0.2-0.8); MONOCYTES % (AUTO) 4 % (2-9); NEUTROPHILS # (AUTO) 16.28 x10^3/uL (1.8-6.8); NEUTROPHILS % (AUTO) 92 % (42-75); PLATELET COUNT 355 x10^3/uL (130-400); RED BLOOD COUNT 4.33 x10^6/uL (3.82-5.3); RED CELL DISTRIBUTION WIDTH 16.5 % (9.6-15.2)
[2018-11-16 09:27] LABS: ANION GAP 5 mmol/L (5-15); CALCIUM 8.8 mg/dL (8.5-10.1); CHLORIDE 102 mmol/L (98-107)
[2018-11-16 09:28] LABS: CREATININE 0.72 mg/dL (0.55-1.02)
[2018-11-16] MEDS: HYDROCHLOROTHIAZIDE 12.5 MG CAPSULE PO SCH (10:19)
[2018-11-16] MEDS: SENNA/DOCUSATE TABLET PO SCH (10:19)
[2018-11-16] MEDS: LOSARTAN 50MG TABLET PO SCH (10:19)
[2018-11-16] MEDS: SODIUM CHLORIDE FLUSH 10ML SYR IVF SCH (10:20)
[2018-11-16] MEDS ORDERED: LORazepam 2 MG/ML, 1ML ONE (14:41)
[2018-11-16] MEDS ORDERED: morphine SULFATE 10 MG/ML, 1ML ONE (14:41)
[2018-11-16] MEDS ORDERED: LORazepam 2 MG/ML, 1ML IVPush ONE (15:00)
[2018-11-16] MEDS ORDERED: morphine SULFATE 10 MG/ML, 1ML IVPush ONE ×2 (15:00→15:30)
== END 2018-11-16 15:11 | disposition hospice, home (50) | DRG 189 ==
LOC: ED 21:58 → EDIP 22:00 → 5SO 22:41 → 4EST 11-15 05:53
PROVIDERS: ADMIT Family Medicine; ATTEND Family Medicine
DX: J96.01 Acute respiratory failure with hypoxia (principal); J44.1 Chronic obstructive pulmonary disease with (acute) exacerbation; E87.1 Hypo-osmolality and hyponatremia; Z66 Do not resuscitate; Z82.5 Family history of asthma and other chronic lower respiratory diseases; Z51.5 Encounter for palliative care; K59.00 Constipation, unspecified; I16.0 Hypertensive urgency; F17.210 Nicotine dependence, cigarettes, uncomplicated; Z87.01 Personal history of pneumonia (recurrent); Z91.14 Patient's other noncompliance with medication regimen; Z91.19 Patient's noncompliance with other medical treatment and regimen; Z90.89 Acquired absence of other organs; Z98.51 Tubal ligation status; Z88.5 Allergy status to narcotic agent
CPT/HCPCS: 36415; 36600; 71045; 80048; 80053; 82803; 84145; 85025; 93005; 94640; 96374; G0378; J1644; J7620; J0360; J1940; J2060; J2270; J2930

== ENCOUNTER 2018-11-16 15:08 | Inpatient (IN) | payer OTHER ==
[2018-11-16] MEDS ORDERED: SODIUM CHLORIDE 0.9% 1,000 ML IV SCH (15:09)
[2018-11-16] MEDS: LORazepam 2 MG/ML, 1ML IVPush PRN ×3 (15:24→23:33)
[2018-11-16] MEDS ORDERED: ONDANSETRON 2MG/ML, 2ML IVPush PRN (15:30)
[2018-11-16] MEDS ORDERED: LORazepam 2 MG/ML, 1ML IVPush PRN (15:30)
[2018-11-16] MEDS ORDERED: MORPHINE SULFATE 4 MG/ML, 1ML IVPush PRN ×3 (15:30)
[2018-11-16] MEDS ORDERED: SCOPOLAMINE PATCH, 1.5MG PATCH.TD72 TD SCH (15:30)
[2018-11-16 20:35] VITALS: BP 154/77
[2018-11-17] MEDS: ATROPINE OPHTH SOLN 1%, 5ML BC PRN ×8 (00:33→23:25)
[2018-11-17] MEDS: LORazepam 2 MG/ML, 1ML IVPush PRN ×4 (01:18→15:14)
[2018-11-17] MEDS: LORazepam 2 MG/ML, 1ML IVPush SCH ×3 (10:24→22:15)
[2018-11-18] MEDS: ATROPINE OPHTH SOLN 1%, 5ML BC PRN ×4 (00:11→08:01)
[2018-11-18] MEDS: LORazepam 2 MG/ML, 1ML IVPush SCH ×2 (03:45→10:00)
[2018-11-18] MEDS: LORazepam 2 MG/ML, 1ML IVPush PRN (08:01)
== END 2018-11-18 17:10 | disposition expired | DRG 189 ==
LOC: 4EST 15:12 → 3NW 17:07
PROVIDERS: ADMIT Internal Medicine; ATTEND Internal Medicine
DX: J96.20 Acute and chronic respiratory failure, unspecified whether with hypoxia or hypercapnia (principal); J44.1 Chronic obstructive pulmonary disease with (acute) exacerbation; F17.200 Nicotine dependence, unspecified, uncomplicated; F41.1 Generalized anxiety disorder; I10 Essential (primary) hypertension; K59.00 Constipation, unspecified; Z66 Do not resuscitate; Z87.01 Personal history of pneumonia (recurrent); Z98.51 Tubal ligation status; Z88.5 Allergy status to narcotic agent; Z51.5 Encounter for palliative care
CPT/HCPCS: G0378; J2270; J2060